=== PATIENT | female | born 2000 | race Caucasian/White ===

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

== ENCOUNTER 2024-08-08 21:21 | Emergency (ER) | payer SELFPAY ==
[2024-08-08 21:23] VITALS: BP 146/81; PULSE 123; RESP 18; TEMP 36.4; O2SAT 97; BMI 38.6
--- NOTE | 2024-08-08 22:13 | EDS_ITS ---
HPI History of Present Illness Chief Complaint: Palpitations PFSH PFS Medical History Allergies Asthma GERD (gastroesophageal reflux disease) Home Medications ?Medication ?Instructions ?Recorded ?Last Taken ?Type loratadine 10 mg tablet 10 mg PO DAILY 02/28/21 Unkn own History famotidine 20 mg tablet 10 mg PO DAILY 03/11/21 Unkn own History tranexamic acid 650 mg tablet 1,300 mg (2 x 650 mg) PO TID #60 03/11/21 Unknown Rx (Lysteda) tabs amoxicillin 875 mg-potassium 1 tab PO Q12H #14 tabs Unknown Rx clavulanate 125 mg tablet Allergy/AdvReac Type Severity Reaction Status Date / Time No Known Allergies Allergy Verified 08/08/24 21:22 Family History Grandfather Alzheimer's dementia Social History household members: other current occupational status: employed current occupation: [employer] Smoking Status: Never smoker alcohol intake: never substance use type: does not use what type of physical activity do you participate in: none seatbelt use: always do you feel safe at home: Yes additional social history: single EXAM Physical Exam Const Vital Signs: 08/08/24 21:23 08/08/24 22:30 08/08/24 23:25 Temperature 97.6 F L Temperature Source Temporal Pulse Rate 123 H 105 H Respiratory Rate 18 20 H Blood Pressure 146/81 H 106/60 Blood Pressure Mean 102 75 Pulse Ox 97 96 Oxygen Delivery Method Room Air Room Air Room Air [facility] [place] Narrative Medical decision making narrative: HISTORY OF PRESENT ILLNESS: Chief complaint: Palpitations 23-year-old female presents with heart racing after eating a weed gummy. Denies syncope. Denies focal weakness. Denies chest pain, shortness of breath, leg swelling or bleeding REVIEW OF SYSTEMS: Pertinent positives: Palpitations Pertinent negatives: Chest pain, shortness breath, leg swelling PHYSICAL EXAM: Nursing triage notes reviewed, Vital signs reviewed Constitutional: please see mdm HENT: MMM Eyes: Pupils equal round and reactive to light, Extraocular muscles intact Neck: No stridor, no JVD, full neck ROM Lungs: Clear to auscultation, No wheezing or rales. No increased work of breathing, no conversational dyspnea, no accessory muscle use, no nasal flaring. No respiratory distress noted Heart: Regular rate and rhythm, No murmurs, No rubs and No gallops, 2+ distal pulses (radial, femoral, posterior tibial) in all extremities Abdomen: Soft, there is no tenderness, rigidity, rebound or guarding, no obvious peritoneal signs, no palpable pulsatile abdominal masses, no auscultated a bdominal bruit : No CVAT Extremities: No edema Neuro: No new focal neurological deficits, cranial nerves II through XII intact, 5/5 strength in all present extremities. Intact sensation to light touch in all present extremities, 2+ reflexes bilateral patella tendons. Skin: No rash or lesions noted MEDICAL DECISION MAKING: Chief Complaint: please see HPI External records reviewed: Reviewed prior cardiovascular testing Factors affecting care: obesity, PCOS, Social determinants of health: n marijuana use History obtained from others: none Consults: none MDM Narrative: The patient was initially tachycardic with a heart rate of 123 otherwise afebrile and nontoxic-appearing I considered the following differential diagnosis: Arrhythmia, anemia, electrolyte disturbance, dehydration, drug intoxication I obtained a broad lab and imaging workup to further elucidate etiology of patient's complaints ALL IMAGES (IF OBTAINED) HAVE BEEN PERSONALLY REVIEWED AND INTERPRETED BY MYSELF . EKG with sinus tachycardia rate of 110, normal axis, no intervals, no STEMI High-sensitivity troponin is negative, no evidence of myocardial ischemia CBC with very slight leukocytosis, no anemia or thrombocytopenia BMP without evidence of significant electrolyte abnormalities, no anion gap, no acute kidney injury. I have personally reviewed the patient's chest x-ray. Chest x-ray is unremarkab le for pulmonary edema, pneumothorax, pneumonia or focal cardiopulmonary abnormality. The synthesis of the patient's history, physical exam, labs images suggest likely THC gummy ingestion related palpitations. No sign of arrhythmia, anemia, significant electrolyte disturbance or myocardial ischemia. Patient appropriate discharge home. Counseled on foregoing using illicit substances or THC cont aining products. The patient and/or family, caregivers express understanding. The patient and/or family, caregivers agrees with the plan. Shared decision making: I will have a discussion with the patient and or visitors regarding risk/benefits of further testing or admission. They will be made aware of of the risk/benefits inherent in this decision they will be given the opportunity to voice understanding. Total critical care time today provided was at least 0 minutes. This excludes separately billable procedures. Critical care time (if documented) is secondary to the patient having high probability of clinically significant/life threatening deterioration in the patient's condition which required my urgent intervention. Impression: 1. Palpitation 2. Drug ingestion Dispo: Discharge home This note was generated with [employer] dictation software. It may contain incorrect words, spelling, and punctuation that were not noted in review of the chart prior to signing. Lab Data Labs: Laboratory Results - last 24 hr 08/08/24 22:25 WBC 11.9 H RBC 4.88 Hgb 13.5 Hct 39.9 MCV 81.8 MCH 27.7 MCHC 33.8 RDW Std Deviation 36.9 RDW Coeff of Gael 12.4 Plt Count 379 MPV 9.1 Immature Gran % (Auto) 0.400 Neut % (Auto) 75.8 H Lymph % (Auto) 15.4 L [place] % (Auto) 7.4 Eos % (Auto) 0.6 Baso % (Auto) 0.4 Absolute Neuts (auto) 9.0 H Absolute Lymphs (auto) 1.83 Nucleated RBC % 0 Sodium 138 Potassium 4.3 Chloride 106 Carbon Dioxide 19.9 L Anion Gap 13 BUN 9 Creatinine 0.60 L Estim Creat Clear Calc 146.55 Est GFR (MDRD) Non-Af 131 BUN/Creatinine Ratio 14.2 Glucose 156 H Calcium 9.3 Troponin T High Sens < 6 Radiography Diagnostic Testing: Clinical Impression(s) from Imaging Studies Chest X-Ray 08/08/24 22:32 IMPRESSION: No Acute Findings. [facility] Triage Chief Complaint: Palpitations ED Provider: Fredi Macdonald Dx/Rx/DC Orders Prescriptions: No Action tranexamic acid [Lysteda] 650 mg tablet 1,300 mg PO TID Qty: 60 2RF Rx Instructions: up to 5 days of menses amoxicillin-pot clavulanate 875-125 mg tablet 1 tab PO Q12H Qty: 14 0RF loratadine 10 mg Tablet 10 mg PO DAILY famotidine 20 mg tablet 10 mg PO DAILY Primary Care Provider: Care Physician,No Primary Referrals: Care Physician,No Primary [Primary Care Provider] - Print Language: Latvian
--- NOTE | 2024-08-08 22:14 | EKG12_ITS ---
Test Reason : PALPS Blood Pressure : */* mmHG Vent. Rate : 110 BPM Atrial Rate : 110 BPM P-R Int : 124 ms QRS Dur : 84 ms QT Int : 334 ms P-R-T Axes : 60 29 30 degrees QTcB Int : 452 ms Sinus tachycardia Otherwise normal ECG Confirmed by JOSIAS DUBON, GLADYS ([id number]), non linear editor HAYDE JONES ([id number]) on 08/13/2024 9:06:38 AM Referred By: MIKE Confirmed By: GLADYS FERRARA MD
[2024-08-08] MEDS: 0.9% Normal Saline (1000mL) 1,000 ML 999 ML IV (22:30)
--- NOTE | 2024-08-08 22:32 | RAD_ITS ---
PROCEDURE: CHEST 1 VIEW (PORTABLE) 08/08/2024 REASON FOR EXAM: CHEST PAIN TECHNIQUE: Frontal view of the chest. COMPARISON: None FINDINGS: Hardware: None Heart: Cardiac and mediastinal contours are stable. Lungs: The lungs are clear. Bones: The bones are unremarkable. Other: RAD/Chest 1 View (Portable) IMPRESSION: No Acute Findings. Reading Location: [facility]
[2024-08-08 22:34] LABS: Absolute Lymphocyte Count 1.83 X10^3/uL (0.83-4.51); Basophil# 0.05 X10^3/uL; Basophil% 0.4 % (0-1); Eosinophil# 0.07 X10^3/uL; Eosinophils% 0.6 % (0-5); Hematocrit 39.9 % (37-47); Hemoglobin 13.5 g/dL (12.0-15.0); Lymphocyte # 1.83 X10^3/ul (0.83-4.51); Lymphocyte % 15.4 % (19-41); Mean Corp Hgb Conc 33.8 g/dL (32-36); Mean Corpuscular Hgb 27.7 pg (27.0-32.0); Mean Corpuscular Volume 81.8 fL (81-99); Mean Platelet Vol. 9.1 fl (6.2-12.0); Monocyte# 0.88 X10^3/uL; Monocyte% 7.4 % (0-10); NRBC Flagged by Analyzer 0 % (0-5); Neutrophil # 9.01 X10^3/uL (2.7-7.7); Neutrophil % 75.8 % (47-70); POSITIVE COUNT YES; RBC Distribution Width CV 12.4 % (11.6-14.6); RBC Distribution Width SD 36.9 fl (35.1-43.9); Red Blood Count 4.88 M/mm3 (4.2-5.4); White Blood Count 11.9 K/mm3 (4.4-11.0)
[2024-08-08 22:54] LABS: Anion Gap 13 (5-15); BUN 9 mg/dL (4-19); BUN/Creat Ratio 14.2 RATIO (10-20); Calcium,Total 9.3 mg/dL (7.6-11.0); Carbon Dioxide 19.9 mmol/L (21.0-32.0); Chloride 106 mmol/L (98-108); EST Glomerular Filtration Rate 131 (>60); Estimated Creatinine Clearance 146.55 ml/min (50-250); Glucose 156 mg/dL (70-99); Potassium 4.3 mmol/L (3.3-5.1); Sodium Level 138 mmol/L (133-145); Troponin T High Sensitivity < 6 ng/L (<=14)
[2024-08-08 23:05] LABS: Differential Indicated SCAN CRITERIA MET
[2024-08-08 23:17] LABS: Platelet Count 379 K/mm3 (150-450)
[2024-08-08 23:25] VITALS: BP 106/60; PULSE 105; RESP 20; O2SAT 96
[2024-08-08 23:33] VITALS: BP 98/60; PULSE 105; RESP 20; TEMP 36.8; O2SAT 96
== END 2024-08-08 23:43 | disposition home or self-care (01) ==
PROVIDERS: Emergency Provider Emergency Medicine; Visit Provider Emergency Medicine
DX: R00.2 Palpitations (principal); R00.0 Tachycardia, unspecified; J45.909 Unspecified asthma, uncomplicated; K21.9 Gastro-esophageal reflux disease without esophagitis; E66.9 Obesity, unspecified; Z79.899 Other long term (current) drug therapy
CPT/HCPCS: 71045; 80048; 84484; 85025; 93005; 96360; 99284